=== PATIENT | female | born 1970 | race Caucasian/White ===

== ENCOUNTER → 2023-07-11 08:56 | Outpatient (REF) | payer BC, SELFPAY | LOC: HWRAD 08:56 | PROVIDERS: ATTENDING PHYSICIAN Internal Medicine | DX: M54.50 Low back pain, unspecified (principal); G89.29 Other chronic pain | CPT/HCPCS: 74177; Q9967 ==

== ENCOUNTER → 2023-10-22 10:03 | Outpatient (REF) | payer BC, SELFPAY | LOC: HWWDC 10:03 | PROVIDERS: ATTENDING PHYSICIAN Obstetrics & Gynecology; FAMILY PHYSICIAN Internal Medicine | DX: Z12.31 Encounter for screening mammogram for malignant neoplasm of breast (principal) | CPT/HCPCS: 77063; 77067 ==

== ENCOUNTER → 2023-12-23 07:37 | Outpatient (REF) | payer BC, SELFPAY ==
[2023-12-23 10:36] LABS: Free T4 1.22 ng/dl (0.78-2.19); Vitamin D, 25-OH*** 34.5 ng/mL (30-80)
[2023-12-23 10:49] LABS: TSH 0.85 uIU/ml (0.47-4.68)
== END ==
LOC: HWLAB 07:37
PROVIDERS: ATTENDING PHYSICIAN Physician Assistant; FAMILY PHYSICIAN Internal Medicine
DX: E55.9 Vitamin D deficiency, unspecified (principal); E03.9 Hypothyroidism, unspecified
CPT/HCPCS: 36415; 82306; 84439; 84443

== ENCOUNTER 2024-04-20 16:09 | Inpatient (IN) | payer BC, SELFPAY ==
[2024-04-19 20:51] VITALS: BP 138/89
--- NOTE | 2024-04-19 21:30 | ED.GENMED ---
History of Present Illness
<CORY Petit - Last Filed: 04/20/24 00:09>
General
Chief Complaint: Cough
Source: patient
Exam Limitations: none
Time Seen by Provider: 04/19/24 21:04
Nursing documentation reviewed up to this point in time: agreed with
History of Present Illness
History of Present Illness:
Patient is a 53-year-old female who presents to the ER for evaluation. Patient started with fevers on April 10 she had fevers for about 7 days. She was tested for COVID and flu which were both negative and went to urgent care and was given an
antibiotic for sinus infection and then went back several days after and had a chest x-ray to evaluate cough and was told she had a virus. She went to her family doctor on Saturday several days ago with continued cough and was put on Levaquin.
She completed Levaquin however today complains of right rib pain and hemoptysis. She has been coughing up pink-tinged sputum all throughout the day.
She does not feel short of breath. She does not smoke. No prior history of DVT PE.
Past History
<CORY Petit - Last Filed: 04/20/24 00:09>
Past History
ED Past Medical History: Other (Raynaud's); Negative Asthma, HTN, Hypercholesterolemia or NIDDM
ED Past Surgical History: None
Social History
Tobacco: Non-smoker
Alcohol: Daily (Wine 3 glasses)
Personal:
Living: with family
Employment: Employed
Family History
Family History: Other (reviewed and non-contributory)
Review of Systems
<CORY Petit - Last Filed: 04/20/24 00:09>
Review of Systems
Allergies reviewed?: Yes
All Other Systems: ROS reviewed and negative except as documented in HPI and ROS
Constitutional: Reports other (fever for 7 d denies presently )
Respiratory: Reports cough, hemoptysis and other (right lower anterior / lateral posterior rib pain ); Denies trouble breathing
Cardiac: Reports no symptoms
ABD/GI: Reports no symptoms
Musculoskeletal: Reports no symptoms
Skin: Reports no symptoms
Neurological: Reports no symptoms
Psychiatric: Reports no symptoms
Phy Exam
<CORY Petit - Last Filed: 04/20/24 00:09>
General Physical Exam
General Presentation: no apparent distress
General age: appears stated age
General Skin: warm
General Habitus: normal
General Mental: alert
General Hydration: appears well hydrated
Cardiovascular Exam
Cardiovascular Exam: regular rate/rhythm, no murmur and normal peripheral pulses
Pulmonary Exam
Pulmonary Exam: lungs clear, no respiratory distress and other (tender right lower ribs no crepitus )
Neurological Exam
Neurological Exam: alert
Musculoskeletal Exam
Musculoskeletal Exam: full ROM
Skin Exam
Skin Exam: normal color and warm/dry
Psychiatric Exam
Psychiatric Exam: normal mood/affect
Course
<CORY Petit - Last Filed: 04/20/24 00:09>
Orders/Labs/Results
Orders:
Orders
04/19/24 21:28
CT Chest Pe Study Urgent
Comment:
Reason For Exam: sob
IV Insert/Care/Rem.- Treatment PRN
0.9% Sodium Chloride 1000 ml [Nss] 1,000 ml IV BOLUS
04/19/24 21:29
Cardiac Monitoring- Treatment ONCE
04/19/24 21:34
Complete Blood Count/With Diff Urgent
Comprehensive Metabolic Panel Urgent
04/19/24 22:58
CefTRIAXone [Rocephin] 1,000 mg IV NOW STA
04/19/24 23:04
Azithromycin 500 mg/250 ml [Zithromax Infusion] 500 mg in 250 ml IV NOW
04/19/24 23:08
Acetaminophen 1000MG/100Ml [Ofirmev] 1,000 mg in 100 ml .ROUTE .STK-MED
04/19/24 23:10
Acetaminophen 1000MG/100Ml [Ofirmev] 1,000 mg in 100 ml IV ONCE
Acetaminophen IV Indication:: ED Narcotic Naive Pt-ONCE
04/19/24 23:45
Admit/Transfer Patient As Directed
Co-Sign Provider:
Level of Care: Observation services
Assign to:: Medical/Surgical
Physician / Group: Hospitalist
Diagnosis: pneumonia
Code Status As Directed
Resuscitation Status: Full Code
PRN Pain Medication Management As Directed
May give lesser potent ordered pain med per pt: Yes
preference::
Protocol:: Medication orders for pain may be administered in a
manner that supports deferring to patient preference
when the pt is:
- Requesting an ordered lesser potent pain medication.
Least to most potent pain medications are defined
as: acetaminophen < NSAID < tramadol < opioids
(morphine, oxycodone, hydromorphone).
- Requesting a lesser dose of the same medication IF
ORDERED.
- Requesting a less intrusive route of administration
if both routes are prescribed by the provider (PO <
IV).
04/20/24 06:00
Levothyroxine [Synthroid] 50 mcg PO DAILY@0600
Abnormal Lab Results
04/19/24
21:34
WBC 3.5 L 10^3/uL
(4.8-10.8)
RBC 3.73 L 10^6/uL
(4.20-5.40)
Hgb 11.6 L g/dL
(12.0-16.0)
Hct 32.7 L %
(37.0-47.0)
MCH 31.1 H pg
(27.0-31.0)
RDW 11.2 L %
(11.5-14.5)
Monocytes % 11.7 H %
(1.7-9.3)
Glucose 108 H mg/dl
(70-99)
04/19/24 21:34
04/19/24 21:34
Vital Signs
Initial and Last Documented VS:
Initial Vital Signs
Temp Pulse Resp BP Pulse Ox
98.2 F 98 18 138/89 98
04/19/24 20:51 04/19/24 20:51 04/19/24 20:51 04/19/24 20:51 04/19/24 20:51
Last Documented Vital Signs
Temp Pulse Resp BP Pulse Ox
98.1 F 93 14 126/83 98
04/19/24 22:53 04/19/24 22:53 04/19/24 22:53 04/19/24 22:53 04/19/24 22:53
Light Rail Signal Technician consulted with Physician
Light Rail Signal Technician consulted with physician?: Yes
Name of Physician Consulted: Azar
<Kevin Askew, DO - Last Filed: 04/20/24 00:21>
Orders/Labs/Results
Orders:
Orders
04/19/24 21:28
CT Chest Pe Study Urgent
Comment:
Reason For Exam: sob
IV Insert/Care/Rem.- Treatment PRN
0.9% Sodium Chloride 1000 ml [Nss] 1,000 ml IV BOLUS
04/19/24 21:29
Cardiac Monitoring- Treatment ONCE
04/19/24 21:34
Complete Blood Count/With Diff Urgent
Comprehensive Metabolic Panel Urgent
04/19/24 22:58
CefTRIAXone [Rocephin] 1,000 mg IV NOW STA
04/19/24 23:04
Azithromycin 500 mg/250 ml [Zithromax Infusion] 500 mg in 250 ml IV NOW
04/19/24 23:08
Acetaminophen 1000MG/100Ml [Ofirmev] 1,000 mg in 100 ml .ROUTE .STK-MED
04/19/24 23:10
Acetaminophen 1000MG/100Ml [Ofirmev] 1,000 mg in 100 ml IV ONCE
Acetaminophen IV Indication:: ED Narcotic Naive Pt-ONCE
04/19/24 23:45
Admit/Transfer Patient As Directed
Co-Sign Provider:
Level of Care: Observation services
Assign to:: Medical/Surgical
Physician / Group: Hospitalist
Diagnosis: pneumonia
Code Status As Directed
Resuscitation Status: Full Code
PRN Pain Medication Management As Directed
May give lesser potent ordered pain med per pt: Yes
preference::
Protocol:: Medication orders for pain may be administered in a
manner that supports deferring to patient preference
when the pt is:
- Requesting an ordered lesser potent pain medication.
Least to most potent pain medications are defined
as: acetaminophen < NSAID < tramadol < opioids
(morphine, oxycodone, hydromorphone).
- Requesting a lesser dose of the same medication IF
ORDERED.
- Requesting a less intrusive route of administration
if both routes are prescribed by the provider (PO <
IV).
04/20/24 06:00
Levothyroxine [Synthroid] 50 mcg PO DAILY@0600
Abnormal Lab Results
04/19/24
21:34
WBC 3.5 L 10^3/uL
(4.8-10.8)
RBC 3.73 L 10^6/uL
(4.20-5.40)
Hgb 11.6 L g/dL
(12.0-16.0)
Hct 32.7 L %
(37.0-47.0)
MCH 31.1 H pg
(27.0-31.0)
RDW 11.2 L %
(11.5-14.5)
Monocytes % 11.7 H %
(1.7-9.3)
Glucose 108 H mg/dl
(70-99)
04/19/24 21:34
04/19/24 21:34
Vital Signs
Initial and Last Documented VS:
Initial Vital Signs
Temp Pulse Resp BP Pulse Ox
98.2 F 98 18 138/89 98
04/19/24 20:51 04/19/24 20:51 04/19/24 20:51 04/19/24 20:51 04/19/24 20:51
Last Documented Vital Signs
Temp Pulse Resp BP Pulse Ox
98.1 F 93 14 126/83 98
04/19/24 22:53 04/19/24 22:53 04/19/24 22:53 04/19/24 22:53 04/19/24 22:53
<CORY Petit - Last Filed: 04/20/24 00:09>
MDM/Problems Addressed
Differential Diagnosis Includes:
Not limited to pneumonia, PE
MDM/Problems Addressed:
As documented patient is a 53-year-old female who was treated for outpatient pneumonia who presents with right rib pain and hemoptysis which started today. Patient denies any shortness of breath no DVT PE risk factors. She is afebrile. She
reports she has had a chronically low white count white count is 3.5. Patient has normal chemistries CAT scan was done which does show multi lobar pneumonia the radiology does make note that additional possibilities are acute pulmonary
hemorrhage/inflammatory pneumonitis along with a acute nondisplaced fracture of the right lateral ninth rib which coincides with her site of pain.
Since patient was recently on 2 antibiotics still with multi lobar pneumonia with hemoptysis will recommend admission.
Patient eval by ED physician
Chronic conditions affecting care:
low wbc
<CORY Petit - Last Filed: 04/20/24 00:09>
*Critical Care Note
Total Time (30-74mins, 75-104mins- exclusive of procedures): Not Applicable
<CORY Petit - Last Filed: 04/20/24 00:09>
Patient Management
Discussion with other providers: Hospitalist
ED Attending Note
<CORY Petit - Last Filed: 04/20/24 00:09>
-
Portions of this chart may have been created with voice recognition software.� Occasional wrong word or��sound alike� substitutions may have occurred due to the inherent limitations of voice recognition software.
<Kevin Askew DO - Last Filed: 04/20/24 00:21>
ED Attending Note
Patient seen and examined by attending physician: Yes
I performed the substantive portion of visit, reviewed & personally made and approve the management plan that is documented in note by myself or VICENTE.: Yes
ED Attending Note:
Patient is a 53-year-old female presents to the emergency department with approximately 7 to 10 days of coughing and fevers and being on a cephalosporin and then Levaquin for possible pneumonia. Patient has tested negative for influenza and COVID.
Patient has had a cough has been productive of clear sputum but today it became pink with blood. Patient also complains of the last 3 days of right-sided chest pain that gets worse with coughing. Patient's fever has improved. Patient states that
hurts to breathe or take a deep breath. Patient is a non-smoker. On physical exam patient's heart is regular and lungs are coarse but essentially clear. Chest wall is not tender or unstable. No crepitus, deformity or subcutaneous emphysema.
Abdomen soft nontender. No edema or cyanosis. CT scan shows multi lobar pneumonia. Patient's white count is normally low and is slightly higher than normal but still low. Patient has multi lobar community-acquired pneumonia with a negative COVID
and negative influenza test. Patient has been on 2 rounds of antibiotics. Patient has a fractured rib is in all likelihood from coughing. Patient will be admitted for intravenous antibiotics.
Discharge Plan
Departure
Patient Disposition: Admit
Date of Disposition: 04/19/24
Time of Disposition: 23:12
Admit to: Med/Surg
Admit to doctor: hospitalist
Presentation/result/management discussed w/ accepting MD/DO: Hospitalist
Patient with high blood pressure during this ER visit?: Yes
Condition: Fair
Covid-19: Not Applicable
Discharge Problem:
multilobe pneumonia, Closed rib fracture, Hemoptysis
Interventions
Interventions:
*Risk Screen - Suicide Last Done: 04/19/24 20:53
*General Assessment Last Done: 04/19/24 20:55
*Neglect/Abuse Screening Last Done: 04/19/24 22:51
ED- Fall Risk Assessment Last Done: 04/19/24 20:55
*ED COVID-19 Vaccine History Last Done: 04/19/24 22:51
ED- Pulmonary Assessment Last Done: 04/19/24 20:55
[2024-04-19] MEDS: NSS 1000 IV (21:35)
[2024-04-19 21:44] VITALS: BP 134/90
[2024-04-19 21:52] LABS: Hematocrit 32.7 % (37.0-47.0); Hemoglobin 11.6 g/dL (12.0-16.0); Mean Corp Hgb Conc. 35.5 g/dL (33.0-37.0); Mean Corpuscular Hgb 31.1 pg (27.0-31.0); Mean Corpuscular Volume 87.7 fL (81.0-99.0); Mean Platelet Volume 9.4 fL (7.4-10.4); Platelet Count 299 10^3/uL (130-400); Red Blood Cell Count 3.73 10^6/uL (4.20-5.40); Red Cell Dist. Width 11.2 % (11.5-14.5); White Blood Cell Count 3.5 10^3/uL (4.8-10.8)
[2024-04-19 21:59] LABS: ALT (SGPT) 24 U/L (0-35); AST (SGOT) 29 U/L (14-36); Albumin 4.1 g/dl (3.5-5.0); Alkaline Phosphatase 51 U/L (38-126); Blood Urea Nitrogen 15 mg/dl (7-17); Calcium 9.5 mg/dl (8.4-10.2); Carbon Dioxide 28 mmol/L (22-30); Chloride 101 mmol/L (98-107); Glucose 108 mg/dl (70-99); Potassium 3.9 mmol/L (3.5-5.1); Sodium 140 mmol/L (135-145); Total Bilirubin 0.2 mg/dl (0.2-1.3); Total Protein 6.4 g/dl (6.3-8.2); eGFR > 60.00
[2024-04-19 22:10] LABS: % Basophils 0.6 % (0-2); % Immature Granulocytes 0.3 % (0-0.5); % Lymphocytes 37.8 % (20.5-51.1); % Monocytes 11.7 % (1.7-9.3); % Neutrophils 47.6 % (42.2-75.2); Absolute Eosinophils 0.1 10^3/uL (0-0.7); Absolute Lymphocytes 1.3 10^3/uL (1.2-3.4); Absolute Monocytes 0.4 10^3/uL (0.1-0.6); Absolute Neutrophils 1.7 10^3/uL (1.4-6.5); Nucleated Red Blood Cells % 0 %
[2024-04-19 22:51] VITALS: BMI 21.2
[2024-04-19 22:53] VITALS: BP 126/83
[2024-04-19] MEDS: ROCEPHIN 1000 MG IV (23:13)
[2024-04-19] MEDS: OFIRMEV 100 IV (23:17)
--- NOTE | 2024-04-19 23:32 | HPS.HSE ---
Family Physician
-
Family Physician: Sergei Lance MD
Chief Complaint
-
Cough and hemoptysis
History of Present Illness
This is a 53-year-old female was a past medical history significant for hypothyroidism on levothyroxine who presents to the emergency department after several days of cough and noticing to have had scant blood in the cough today.
Patient reported that approximately 10 days ago she started with sinus congestion headache and postnasal drip. She was seen at urgent care and diagnosed with acute sinusitis. Patient was started on cephalosporin. She did improve transiently but
then continued to have significant postnasal drip and a cough that is productive of yellowish phlegm. She followed up with PMD who was not particularly concerned but did an x-ray which was unremarkable at that time. Patient then continued to have
cough for a few more days and then was started on Levaquin approximately 4 days ago. She has been having a fever for about 7 days but the fever was last noticed 2 days ago. She reported that today she started having cough that is productive cough
reddish to pinkish frothy sputum. No significant greenish mucus. There were no clots. She has no recurrent fevers. She does not feel short of breath. She reported that the previous night she did have a miscarriage which resulted in worsening
cough and right-sided rib/flank pain.
Patient reports history of low white counts in the past but has been followed by hematology and had no hematological abnormality. She denies any smoking history. She denies history of any prior cancers. She denies any history of radiation
exposure. She denies any urinary symptoms including changes to the color of her urine or gross hematuria.
In the Emergency Department the patient was afebrile, hemodynamically stable and did not require any supplemental oxygen. CBC was completely within normal limits. Electrolytes BUN/creatinine were also completely normal. She had a CTA of the chest
with PE protocol which showed no evidence of PE. There was moderate centrilobular opacity with groundglass opacity and consolidation in the left lower lobe as well as some mild consolidation in the lingula and superior right lower lobe. There is a
nondisplaced right lateral rib fracture.
Medical History
Past Medical History
Past Medical History: Reports Hypothyroidism
Past Surgical History: Reports None
Social History
Tobacco: Non-smoker
Alcohol: Occasional
Drug: None
Personal:
Living: With Family
Employment: Retired
Family History
Family History: Not pertinent
Allergies / Home Medications
Allergies reflects when Allergies were last updated in [facility].
Home Medications with original date entered in [facility]
Allergy/Medication List:
Allergies
Allergy/AdvReac Type Severity Reaction Status Date / Time
erythromycin base Allergy Unknown Verified 04/19/24 20:50
penicillin G Allergy Vomiting Verified 04/19/24 20:50
Penicillins Allergy Vomiting Verified 04/19/24 20:50
Home Medications
levothyroxine 50 mcg tablet 50 mcg PO DAILY 04/19/24
Review of Systems
-
History Source: Patient
Constitutional: Reports No Symptoms
EENT: Reports No Symptoms
Respiratory: Reports Cough and Hemoptysis
Cardiac: Reports No Symptoms
Abdomen/GI: Reports No Symptoms
: Reports No Symptoms
Musculoskeletal: Reports No Symptoms
Skin: Reports No Symptoms
Neurological: Reports No Symptoms
Endocrine: Reports No Symptoms
Hematologic/Lymphatic: Reports No Symptoms
Psych: Reports No Symptoms
Physical Exam
Vital Signs
Vital Signs
Temp Pulse Resp BP Pulse Ox
98.1 F 93 14 126/83 98
04/19/24 22:53 04/19/24 22:53 04/19/24 22:53 04/19/24 22:53 04/19/24 22:53
Physical Exam
General: Well Developed, Well Nourished, No Apparent Distress, Comfortable and Conversant
HEENT: NormoCephalic, Anicteric, Moist mucous membranes and Atraumatic
Respiratory: Clear
Cardiac: S1/S2 and Regular Rhythm
Breast: Deferred by me
GI: Soft, Non Tender, Non Distended and Normal Bowel Sounds
Rectal: Deferred by Provider
Genito-urinary: Deferred by me
Musculoskeletal: No Clubbing, No Cyanosis and No Edema
Skin: Warm
Neuro: AO x 3
Hematologic/Lymphatic: No Lymphadenopathy
Psych: Calm
Laboratory Results
-
04/19/24 21:34
04/19/24 21:34
Laboratory Results
Total Bilirubin 0.2 mg/dl (0.2-1.3) 04/19/24 21:34
AST 29 U/L (14-36) 04/19/24 21:34
ALT 24 U/L (0-35) 04/19/24 21:34
Alkaline Phosphatase 51 U/L (38-126) 04/19/24 21:34
Data Reviewed
-
CT Scan: Report Reviewed by me
Lab Data: Labs Reviewed by me
Old Records: Reviewed
Impression/Plan
-
IMPRESSION:
53 y.o female with cough, fevers, chills and multifocal infiltrates on CT. Appears to have had URI then post-viral pneumonia. Has been on cefpoxil, then levaquin for the last 9 days (finished levaquin today). Afebrile here, no O2 requirements,
non-productive cough. Non-toxic appearing. No leukocytosis. I suspect she has bronchial bleeding episode from here bronchitis/pneumonia with the clearing/pinkish frothy cough. No PE. Reactive lymphadenopathy seen on CT.
PLAN:
CAP -
- admit to med/surg observation
- IV ceftriaxone/azithromycin for now
- monitor for changes in hemopytsis, if increasing, consult pulm, otherwise complete course of abx
- cough suppressants prn
Rib Fracture - 9th rib, non-displace, single rib. Non-complicated.
- pain control
- incentive spirometry
Hemoptysis - bronchitis/pneumonia. No CHF. No trauma. No renal process.
- monitor for now
DVT PPX - SCDs for now
Code Status - Full Code
[2024-04-19] MEDS: ZITHROMAX INFUSION 250 IV (23:40)
[2024-04-20 00:31] VITALS: BP 125/85
[2024-04-20 01:00] VITALS: BP 116/86; BMI 20.2
[2024-04-20] MEDS: ROBITUSSIN DM 5 ML PO (01:20)
[2024-04-20] MEDS: SYNTHROID 50 MCG PO (05:43)
[2024-04-20 07:29] VITALS: BP 108/79
[2024-04-20 08:05] LABS: Hematocrit 35.6 % (37.0-47.0); Hemoglobin 12.3 g/dL (12.0-16.0); Mean Corp Hgb Conc. 34.6 g/dL (33.0-37.0); Mean Corpuscular Hgb 30.9 pg (27.0-31.0); Mean Corpuscular Volume 89.4 fL (81.0-99.0); Mean Platelet Volume 9.7 fL (7.4-10.4); Platelet Count 299 10^3/uL (130-400); Red Blood Cell Count 3.98 10^6/uL (4.20-5.40); Red Cell Dist. Width 11.2 % (11.5-14.5); White Blood Cell Count 3.3 10^3/uL (4.8-10.8)
[2024-04-20] MEDS: ZITHROMAX 500 MG PO (08:18)
[2024-04-20 08:31] LABS: Blood Urea Nitrogen 8 mg/dl (7-17); Calcium 9.5 mg/dl (8.4-10.2); Carbon Dioxide 25 mmol/L (22-30); Chloride 107 mmol/L (98-107); Estimated Creatinine Clearance 84 ml/min; Glucose 99 mg/dl (70-99); Potassium 4.2 mmol/L (3.5-5.1); Sodium 143 mmol/L (135-145); eGFR > 60.00
[2024-04-20] MEDS: MUCINEX 600 MG PO ×2 (09:52→20:52)
--- NOTE | 2024-04-20 10:20 | CON.PUL ---
Consultation
Consultation Request
Date/Time Consultation Requested: 04/20/2024-10:30 AM
Date/Time Consultation Performed: 04/20/2024-10:30 AM
Requesting Provider: Hospitalist
Performing Provider: Dr. Ahmadi
Reason for Consultation: Hemoptysis
Medical History
-
Chief Complaint: Hemoptysis
History of Present Illness:
53-year-old female patient with a history of hypothyroidism presented with coughing with scant blood-admitted for treatment for pneumonia, rib fracture and pulmonary was consulted for pneumonia/hemoptysis 04/20/2024.
Past Medical History
Past Medical History: None (Hypothyroid.)
Social History
Tobacco: Non-smoker
Alcohol: Occasional
Drug: None
Personal:
Living: With Family
Occupational Exposures: No known asbestos exposure
Environmental Exposures: No known tuberculosis exposure
Family History
Family History: Reviewed & Not Pertinent
Allergies / Home Medications
Allergies
Allergy/AdvReac Type Severity Reaction Status Date / Time
erythromycin base Allergy Unknown Verified 04/19/24 20:50
penicillin G Allergy Vomiting Verified 04/19/24 20:50
Penicillins Allergy Vomiting Verified 04/19/24 20:50
Home Medications
�Medication �Instructions �Recorded �Confirmed �Last Taken �Type
levothyroxine 50 mcg tablet 50 mcg PO DAILY Thyroid 04/19/24 04/19/24 Unknown History
Review of Systems
-
Unable to Obtain full review of systems at this time due to: Other (Per HPI)
Vitals / Labs / Diagnostic Testing
Vital Signs
Temp Pulse Resp BP Pulse Ox
98.1 F 81 19 108/79 97
04/20/24 07:29 04/20/24 07:29 04/20/24 07:29 04/20/24 07:29 04/20/24 07:29
Lab Data
04/20/24 07:40
04/20/24 07:40
Diagnostic Testing:
Physical Exam
-
Exam:
Well-nourished and well-developed in no apparent distress
HEENT-atraumatic, normocephalic
Neck-supple, no JVD, no bruit
Heart-regular rate and rhythm-no murmurs, rubs or gallops
Chest-clear to auscultation, no wheezes, crackles
Back-no tenderness
Abdomen-soft, nontender, nondistended, no hepatosplenomegaly
Extremities-no cyanosis, clubbing, edema and good peripheral pulses
Integument-intact, no rashes, lesions or ecchymosis
Neurology-alert and oriented, nonfocal motor and sensory exam
Assessment
-
53-year-old female lifelong nonsmoking patient with a history of hypothyroidism presented with coughing with scant blood-admitted for treatment for pneumonia, rib fracture and pulmonary was consulted for pneumonia/hemoptysis 04/20/2024.
Qjuqlhbhl-nylzydleod-rcqqhdjwo acquired
Rib fracture-nondisplaced ninth rib- due to vigorous coughing
Mild hemoptysis-suspect also due to vigorous coughing
Mild leukopenia-reportedly chronic
Conditions present prior to admission:
Hypothyroid
Plan
Monitor hemoptysis-quantify
Supplemental oxygen as needed
Incentive spirometry
Nebulizers if needed-currently not bronchospastic
Mucolytic's
Consider bronchoscopy if hemoptysis persists
Follow radiographically
Check cultures
Sputum culture
Empiric antibiotics-Rocephin and azithromycin
Check ESR and procalcitonin
Hold off on vasculitis/pulmonary/renal/other etiologies for hemoptysis
DVT prophylaxis-mechanical
Nutrition
Early mobilization
Outpatient pulmonary lhewtr-zy-cysagrfavipy, PFTs
Diagnostic data:
Chest x-ray 06/16/2012-NAD
CT chest 04/19/2024-moderate central lobular opacification superior segment left lower lobe superior segment lingula diagnostic possibilities pneumonia, acute pulmonary hemorrhage or acute inflammatory pneumonitis, mild left hilar lymphadenopathy
and nondisplaced fracture right lateral ninth rib
Data Reviewed
-
EKG: Report reviewed by me
Radiology: Image personally visualized and interpreted and Report reviewed by me
CT Scan: Image personally visualized and interpreted and Report reviewed by me
Medical Tests (Nuc Med, Echo etc): Report reviewed by me
Labs: Labs reviewed by me
Old Records: Reviewed
Total Time Spent with Patient (in minutes): 55
[2024-04-20 15:24] VITALS: BP 103/80
--- NOTE | 2024-04-20 15:27 | W.PN.HOSP.TC ---
Today's Communication/Plan
-
Continue antibiotics
Quantify hemoptysis.
Assessment / Plan
Assessment / Plan
Impression:
Multifocal left-sided community-acquired pneumonia.
Mild hemoptysis.
Right rib fracture ninth rib without displacement secondary to vigorous cough.
Other conditions:
Chronic leukopenia with unrevealing workup
Hypothyroidism.
Plan:
Left lower lobe multifocal pneumonia community-acquired
CT scan
1. Moderate centrilobular opacity (both airspace consolidation and ground-glass opacity) in the superior segment of the left lower lobe. Mild centrilobular opacity in the superior segment of the lingula and in the superior segment of the right
lower lobe. Diagnostic possibilities are (1) MODERATE LEFT LOWER LOBE PNEUMONIA and mild pneumonia in the left upper lobe and right lower lobe, (2) acute pulmonary hemorrhage, or (3) an inflammatory pneumonitis.
2. Mild left hilar lymphadenopathy (probably reactive and less likely malignant in etiology).
3. Acute nondisplaced fracture of the right lateral 9th rib.
Reportedly negative for flu and COVID as outpatient
Completed course of third generation cephalosporin and later levofloxacin prior to presentation
Current respiratory status stable with no evidence of hypoxia.
Not in distress.
Persistent cough
No further episode of hemoptysis since admission.
Continue current antibiotics ceftriaxone/Zithromax
Quantify hemoptysis
Mucolytic's, cough suppressants
Pulmonology input appreciated. Will require follow-up imaging for resolution.
Anticipated Discharge: 24 - 48 hours
Subjective/Interval History
-
Date of Service: April 20, 2024
Objective Data
-
Labs:
Laboratory Results
04/20/24
07:40
WBC 3.3 L
Hgb 12.3
Hct 35.6 L
Plt Count 299
Sodium 143
Potassium 4.2
Chloride 107
Carbon Dioxide 25
BUN 8
Creatinine 0.6
Glucose 99
Calcium 9.5
Vital Signs:
Vital Signs
Temp Pulse Resp BP Pulse Ox
98.1 F 89 20 103/80 98
04/20/24 15:24 04/20/24 15:24 04/20/24 15:24 04/20/24 15:24 04/20/24 15:24
I&O
04/19/24 04/20/24 04/21/24
06:59 06:59 06:59
Intake Total 480 / 480
Balance 480 / 480
Physical Exam
-
General: Well Developed and No Apparent Distress
HEENT: Normocephalic, Atraumatic and Moist Mucous Membranes
Respiratory: Clear to Auscultation
Cardiac: Regular Rhythm and S1/S2; Negative Murmur, Rub or Gallop
GI: Soft, Nontender, Nondistended and Normal Bowel Sounds; Negative Organomegaly
Rectal: Deferred by Provider
Musculoskeletal: No Clubbing, No Cyanosis and No Edema
Skin: Negative Rash
Neuro: Nonfocal/Grossly Intact
--- NOTE | 2024-04-20 16:26 | CM ---
geothermal production manager reviewed patient's chart and per physician patient has switched to inpatient. Patient lives with spouse in a 2 story home, patient is independent with adl's and ambulation, no dme, patient drives, home when stable, no needs.
PCP: Dr Lance
Pharmacy; [facility] in [place].
[2024-04-20] MEDS: ROCEPHIN 1000 MG IV (20:52)
[2024-04-20] MEDS: STERILE WATER FOR INJECTION 10 ML IV (21:45)
[2024-04-20 23:53] VITALS: BP 114/72
[2024-04-21] MEDS: SYNTHROID 50 MCG PO (06:01)
[2024-04-21 07:35] VITALS: BP 114/80
[2024-04-21 08:04] LABS: Erythrocyte Sed Rate 32 mm/hour (0-20)
[2024-04-21 08:27] LABS: Procalcitonin < 0.05 ng/ml (0.0-0.25)
[2024-04-21] MEDS: MUCINEX 600 MG PO (08:50)
[2024-04-21] MEDS: ZITHROMAX 500 MG PO (08:50)
--- NOTE | 2024-04-21 09:42 | W.PN.PUL.V3 ---
Today's Communication / Plan
-
Continue 7-10 days of antibiotics
Outpatient radiographic follow-up
Outpatient pulmonary follow-up
Assessment
-
53-year-old female lifelong nonsmoking patient with a history of hypothyroidism presented with coughing with scant blood-admitted for treatment for pneumonia, rib fracture and pulmonary was consulted for pneumonia/hemoptysis 04/20/2024.
Ojttwgnlb-mzhpgwsiid-rgzlbwcjn acquired
Rib fracture-nondisplaced ninth rib- due to vigorous coughing
Mild hemoptysis-suspect also due to vigorous coughing
Mild leukopenia-reportedly chronic
Conditions present prior to admission:
Hypothyroid
Plan
Respiratory status has improved-only persistent nonproductive cough
Monitor snbefpojbl-vdfffbek-oewfkmt to have resolved
Supplemental oxygen as needed-currently on room air
Incentive spirometry encouraged
Nebulizers if needed-currently not bronchospastic
Mucolytic's
Consider bronchoscopy if hemoptysis persists-has not needed
Follow radiographically-can be done as an outpatient
Cultures reviewed-unrevealing
Sputum culture-unable to produce
Empiric antibiotics-Rocephin and azithromycin
ESR-32-not consistent with vasculitis
Procalcitonin negative
Hold off on vasculitis/pulmonary/renal/other etiologies for hemoptysis
DVT prophylaxis-mechanical
Nutrition
Early mobilization
Reviewed with primary team
Outpatient pulmonary svcqhy-vb-rmvwlovqvckj, PFTs
Diagnostic data:
Chest x-ray 06/16/2012-NAD
CT chest 04/19/2024-moderate central lobular opacification superior segment left lower lobe superior segment lingula diagnostic possibilities pneumonia, acute pulmonary hemorrhage or acute inflammatory pneumonitis, mild left hilar lymphadenopathy
and nondisplaced fracture right lateral ninth rib
Subjective Data
-
Date of Service:
Date of Service: April 21, 2024
Chief Complaint: Pulmonary Follow Up and Dyspnea Follow Up
Subjective:
Feels better, still has a cough, no hemoptysis, no chest pain, shortness of breath, dyspnea on exertion, abdominal pain, pleurisy
Review of Systems
General: Other (Per HPI)
Objective Data
Data Reviewed
Vital Signs / I&O:
Vital Signs
Temp Pulse Resp BP Pulse Ox
98 F 87 17 114/80 99
04/21/24 07:35 04/21/24 07:35 04/21/24 07:35 04/21/24 07:35 04/21/24 07:35
Intake and Output
04/20/24 04/21/24 04/22/24
06:59 06:59 06:59
Intake Total 480 / 480 1320 / 1320
Balance 480 / 480 1320 / 1320
SaO2: 99
Physical Exam
General: Respiratory Distress (n) and Comfortable
HEENT: Normocephalic, Anicteric and Moist Mucous Membranes
Cardiovascular: Regular Rhythm and Murmur (n)
Respiratory: Wheeze (n), Crackles (n), Rhonchi (n), Non-Labored Respirations, Accessory Resp Muscle Use (n) and Stridor (n)
GI: Soft, Non Distended and Non Tender
Neurology: Awake, Alert and No Motor Deficits
Skin: Warm, Good Color, Cyanosis (n), Jaundice (n) and Rash
Labs/Micro/Reports
Lab Data
04/20/24 07:40
04/20/24 07:40
--- NOTE | 2024-04-21 12:21 | W.DS.TRANS ---
DC Summary - [employer]
-
Discharge Instructions:
Discharge Diagnosis/Procedures Pneumonia
Diet Regular
Others Tests CXR to follow with lef sided pneumonia in 4-6
weeks
Instructions:
Stand-Alone Forms:
Changes to Home Medications: Yes
Discharge Medications:
DC Medications w/original date entered in [email or web address]
levothyroxine 50 mcg tablet 50 mcg PO DAILY Thyroid 04/19/24
azithromycin 250 mg tablet 500 mg (2 x 250 mg) PO DAILY #5 tabs 04/21/24
cefuroxime axetil 500 mg tablet 500 mg PO Q12H #10 tabs 04/21/24
guaifenesin 600 mg tablet, extended release 12 hr 600 mg PO Q12 #60 tabs 04/21/24
Home Medication Changes
Additional 5 days of antibiotics
Pending Results: No
--- NOTE | 2024-04-21 13:03 | CM ---
Discharge to home today no needs.
Plan; Home no needs.
== END 2024-04-21 13:10 | disposition home or self-care (01) | DRG 194 ==
LOC: 4 WEST ACU 16:09
PROVIDERS: Nurse Practitioner; ADMITTING PHYSICIAN Internal Medicine; ATTENDING PHYSICIAN Internal Medicine; CONSULT PHYSICIAN Internal Medicine Critical Care Medicine; EMERGENCY PHYSICIAN Emergency Medicine; FAMILY PHYSICIAN Internal Medicine
DX: J18.9 Pneumonia, unspecified organism (principal); K92.0 Hematemesis; M84.48XA Pathological fracture, other site, initial encounter for fracture; R04.2 Hemoptysis; R05.3 Chronic cough; E03.9 Hypothyroidism, unspecified; D72.819 Decreased white blood cell count, unspecified; R59.1 Generalized enlarged lymph nodes; Z79.890 Hormone replacement therapy; Z88.0 Allergy status to penicillin; Z88.1 Allergy status to other antibiotic agents; I73.00 Raynaud's syndrome without gangrene
CPT/HCPCS: 71275; 80048; 80053; 84145; 85025; 85027; 85652; 90686; 96361; 96365; 96375; 99285; G0008; Q9967

== ENCOUNTER → 2024-06-22 14:45 | Outpatient (REF) | payer BC, SELFPAY | LOC: HWRAD 14:45 | PROVIDERS: ATTENDING PHYSICIAN Nurse Practitioner Adult Health; FAMILY PHYSICIAN Internal Medicine | DX: Z09 Encounter for follow-up examination after completed treatment for conditions other than malignant neoplasm (principal); J18.9 Pneumonia, unspecified organism; R59.0 Localized enlarged lymph nodes; R04.2 Hemoptysis | CPT/HCPCS: 71250 ==

== ENCOUNTER → 2024-06-25 08:00 | Outpatient (REF) | payer BC, SELFPAY | LOC: HWRAD 08:00 | PROVIDERS: ATTENDING PHYSICIAN Internal Medicine; FAMILY PHYSICIAN Internal Medicine | DX: M85.89 Other specified disorders of bone density and structure, multiple sites (principal) | CPT/HCPCS: 77080 ==

== ENCOUNTER → 2024-10-28 10:29 | Outpatient (REF) | payer BC, SELFPAY | LOC: HWWDC 10:29 | PROVIDERS: ATTENDING PHYSICIAN Obstetrics & Gynecology; FAMILY PHYSICIAN Internal Medicine | DX: Z12.31 Encounter for screening mammogram for malignant neoplasm of breast (principal) | CPT/HCPCS: 77063; 77067 ==

== ENCOUNTER → 2025-03-16 09:35 | Outpatient (REF) | payer BC, SELFPAY ==
[2025-03-16 13:20] LABS: Vitamin D, 25-OH*** 39.1 ng/mL (30-80)
[2025-03-16 13:34] LABS: TSH 0.69 uIU/ml (0.47-4.68)
== END ==
LOC: HWRAD 09:35
PROVIDERS: ATTENDING PHYSICIAN Physician Assistant; FAMILY PHYSICIAN Internal Medicine
DX: E04.1 Nontoxic single thyroid nodule (principal); E03.9 Hypothyroidism, unspecified
CPT/HCPCS: 36415; 76536; 82306; 84439; 84443